=== PATIENT | female | born 1990 | race Two or more races ===

== ENCOUNTER 2023-11-29 22:14 | Emergency (ER) | payer OTHER, MEDICAID ==
[~2023-11-29] VITALS: Ht 154.9 cm; Wt 61.0 kg
[2023-11-30] MEDS: MORPHINE SULFATE 4 MG/ML SYR/VIAL IV ONE (01:23)
[2023-11-30] MEDS: ONDANSETRON HCL 4 MG/2 ML VIAL IV ONE (01:26)
[2023-11-30] MEDS: PIPERACILLIN-TAZOB 3.375GM 100 ML IV ONE (01:26)
[2023-11-30 01:30] VITALS: PULSE 91; RESP 16; TEMP 98.1; O2SAT 97
[2023-11-30] MEDS ORDERED: AUG875T PO (01:50)
[2023-11-30] MEDS ORDERED: HYDR-4902 PO (01:50)
[2023-11-30 02:00] VITALS: BP 105/60; PULSE 70; RESP 16
[2023-11-30 02:05] LABS: Urine Bacteria None Seen /hpf (None Seen)
[2023-11-30 02:16] LABS: Urine Blood Negative /uL (Negative); Urine Clarity Clear (Clear); Urine Color Light-Yellow (Yellow); Urine Mucus FEW (None Seen); Urine Protein, UAD TRACE (Negative); Urine Specific Gravity 1.023 (1.001-1.035); Urine Urobilinogen Normal (Negative); Urine WBC 3 /hpf (0 - 5)
== END 2023-11-30 02:56 | disposition home or self-care (01) ==
LOC: ER 22:14 → EDBD 22:14 → EDUNIT# 22:14 → ER 11-30 02:51
DX: S02.32XA Fracture of orbital floor, left side, initial encounter for closed fracture (principal); S06.0X0A Concussion without loss of consciousness, initial encounter; Y08.89XA Assault by other specified means, initial encounter; Y93.89 Activity, other specified; Y92.89 Other specified places as the place of occurrence of the external cause; Y99.8 Other external cause status
CPT/HCPCS: 70450; 70486; 81001; 96365; 96375; 99285; J2270; J2405; J2543